=== PATIENT | female | born 2000 | race Two or more races ===

== ENCOUNTER 2024-09-01 23:30 | Emergency (ER) | payer MEDICAID, OTHER ==
[~2024-09-01] VITALS: Ht 154.9 cm; Wt 77.4 kg
[2024-09-02 00:37] LABS: Urine Bacteria None Seen /hpf (None Seen)
[2024-09-02 00:45] VITALS: BP 121/57; PULSE 78; RESP 18; TEMP 98.5; O2SAT 97
--- NOTE | 2024-09-02 00:49 | ED.PDOC ---
General HPI Comments 24-YEAR-OLD FEMALE PRESENTS TO ER WITH URINARY COMPLAINT X1 DAY. PATIENT REPORTS THAT SHE STARTED EXPERIENCING URINARY HESITANCY, URINARY URGENCY AND BURNING WITH URINATION AT 10 P.M. PRIOR TO ARRIVAL TO ER. STATES SHE ALSO NOTICED BLOOD WITH WIPING AFTER URINATION X 1 DAY. SHE REPORTS 7/10 BURNING PAIN WITH URINATION. DENIES USE OF MEDICATIONS FOR CURRENT SYMPTOMS. PATIENT PRESENTS TO ER AMBULATORY ON ARRIVAL, WITH STEADY GAIT, IN NO DISTRESS. DENIES FEVER, BODY ACHES, CHILLS, NAUSEA/VOMITING, ABDOMINAL/PELVIC PAIN, BACK/FLANK PAIN, FURTHER CHANGES IN URINATION OR ANY FURTHER SYMPTOMS/COMPLAINTS Chief Complaint: Urinary Time Seen by MD: 23:56 Primary Care Provider: UNKNOWN Reviewed notes: Nurses Notes, Medications, Allergies Allergies: Coded Allergies: NO KNOWN ALLERGIES (Unverified , 04/23/16) Home Meds Active Scripts Acetaminophen (Acetaminophen) 500 Mg Tab, 500 MG PO Q4HPRN, #30 TAB 0 Refills Prov:DARREL HILTON 09/02/24 Ciprofloxacin Hcl (Ciprofloxacin Hcl) 500 Mg Tab, 1 TAB PO BID for 7 Days, #14 TAB 0 Refills Prov:DARREL HILTON 09/02/24 Information Source: Patient Mode of Arrival: Ambulatory Past Medical History PAST MEDICAL HISTORY: Denies Surgical History: Denies all surgeries CONFERENCE SPECIALIST History: No Pertinent CONFERENCE SPECIALIST History [facility] 08-09-24 Family History Family History: Unknown Social History Smoker: Non-Smoker Alcohol: Denies ETOH Use Drugs: Denies Drug Use Lives In: Home Constitutional: denies: chills, diaphoresis, fatigue, fever, malaise, sweats, weakness, others EENTM: denies: blurred vision, double vision, ear bleeding, ear discharge, ear drainage, ear pain, ear ringing, eye pain, eye redness, hearing loss, mouth pain, mouth swelling, nasal discharge, nose bleeding, nose congestion, nose pain, photophobia, tearing, throat pain, throat swelling, voice changes, others Respiratory: denies: cough, hemoptysis, orthopnea, SOB at rest, shortness of breath, SOB with excertion, stridor, wheezing, others Cardiovascular: denies: chest pain, dizzy spells, diaphoresis, Dyspnea on exertion, edema, irregular heart beat, left arm pain, lightheadedness, palpitations, PND, syncope, others Gastrointestinal: denies: abdomen distended, abdominal pain, blood streaked bowels, constipated, diarrhea, dysphagia, difficulty swallowing, hematemesis, melena, nausea, poor appetite, poor fluid intake, rectal bleeding, rectal pain, vomiting, others Genitourinary: reports: others (As stated in HPI) Neurological: denies: dizziness, fainting, headache, left sided numbness, left sided weakness, numbness, paresthesia, pre-existing deficit, right sided numbness, right sided weakness, seizure, speech problems, tingling, tremors, weakness, others Musculoskeletal: denies: back pain, gout, joint pain, joint swelling, muscle pain, muscle stiffness, neck pain, others Integumetry: denies: bruises, change in color, change in hair/nails, dryness, laceration, lesions, lumps, rash, wounds, others Allergic/Immunocompromised: denies: Difficulty Healing, Frequent Infections, Hives, Itching, others Hematologic/Lymphatic: denies: anemia, blood clots, easy bleeding, easy bruising, swollen glands, others Endocrine: denies: excessive hunger, excessive sweating, excessive thirst, excessive urination, flushing, intolerance to cold, intolerance to heat, unexplained weight gain, unexplained weight loss, others Psychiatric: denies: anxiety, bipolar disorder, depression, hopeless, panic disorder, schizophrenia, sleepless, suicidal, others Physical Exam General Appearance: No Apparent Distress HEENT: PERRL/EOMI Neck: Full Range of Motion, Non-Tender, Normal Respiratory: Chest Non-Tender, Lungs Clear, No Accessory Muscle Use, No Respiratory Distress, Normal Breath Sounds Cardiovascular: No Murmur, No Gallop, Regular Rate/Rhythm Breast Exam: Deferred Gastrointestinal: Non Tender, No Pulsatile Mass, Soft Genitalia: Deferred Pelvic: Deferred Rectal: Deferred Extremities: Normal capillary refill, Normal range of motion Musculoskeletal : Extremity Location: Back (No TTP to bilateral flanks or CVA tenderness noted bilaterally) 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 Was a procedure done?: No Sedation Sedation?: No Differential Diagnosis Kidney stone (Female): N/A Urinary Problem (Female): Intrauterine , Urinary retention, Urolithiasis, Other (Urosepsis) X-Ray, Labs, Meds, VS Vital Signs Date Time Temp Pulse Resp B/P (MAP) Pulse Ox O2 Delivery O2 Flow Rate FiO2 09/02/24 00:45 78 18 97 Room Air 09/02/24 00:45 98.5 78 18 121/57 (78) 97 98.5 09/01/24 23:41 98.3 87 18 133/92 (106) 97 98.3 Lab Test 09/01/24 23:42 Range/Units Urine Color Light-red Yellow Urine Clarity Ex.turbid Clear Urine pH 5.5 5.0-9.0 Urine Specific [place] 1.020 1.001-1.035 Urine Protein 1+ H Negative Urine Ketones Negative Negative Urine Blood 3+ H Negative /uL Urine Nitrite Negative Negative Urine Bilirubin Negative Negative Urine Urobilinogen Normal Negative mg/dL Urine Leukocyte Esterase 3+ Negative /uL Urine RBC [id number] 0 - 4 /hpf Urine WBC Clumps Present None Seen /hpf Urine Microscopic WBC 654 H 0-5 /HPF Urine Squamous Epithelial Cells None seen <5 /hpf Urine Bacteria None seen None Seen /hpf Urine Mucus Few None Seen Urine Glucose Normal Normal mg/dL Urine Test Negative Negative Current Medications Medications (Trade) Dose Ordered Sig/Lety Route Start Time Stop Time Status Last Admin Acetaminophen (Tylenol Tablet) 650 mg ONCE ONCE PO 09/02/24 01:00 09/02/24 01:01 DC 09/02/24 01:01 Urinalysis reviewed-urine leukocyte esterase 3+, urine nitrites negative, urine blood 3+ Urine culture ordered Urine reviewed - negative Rocephin 1 g IM ordered Tylenol 650 mg po ordered Advised to drink plenty of fluids Patient had improvement in symptoms, tolerating p.o. intake well, urinating without difficulty and non-toxic appearing/in no distress prior to discharge Advised to follow up with PCP in 1-2 days Patient verbalized understanding and agreeable with current plan of care Advised to return to ER immediately if symptoms worsen Time of 1ST Reevaluation: 00:42 Reevaluation 1ST: N/A Time of 2ND Reevaluation: 01:24 Reevaluation 2ND: Improved Patient Education/Counseling: Diagnosis, Treatment, Prognosis, Need For Follow Up Family Education/Counseling: No Family Present Departure 1 Departure Time of Disposition: 01:30 Impression: Primary Impression: UTI (urinary tract infection) Qualified Codes: N30.01 - Acute cystitis with hematuria Disposition: HOME / SELF CARE / HOMELESS Condition: Stable e-Prescriptions Acetaminophen (Acetaminophen) 500 Mg Tab 500 MG PO Q4HPRN, #30 TAB 0 Refills Prov: DARREL HILTON 09/02/24 Ciprofloxacin Hcl (Ciprofloxacin Hcl) 500 Mg Tab 1 TAB PO BID for 7 Days, #14 TAB 0 Refills Prov: DARREL HILTON 09/02/24 Discharged With: Self Critical Care Note Critical Care Time?: No Stability Stability form required: No Heart Score Heart Score: Heart Score Response (Comments) Value History N/A 0 EKG N/A 0 Age N/A 0 Risk Factors N/A 0 Troponin N/A 0 Total 0 DARREL HILTON Sep 02, 2024 00:49
[2024-09-02 00:59] LABS: Urine Blood 3+ /uL (Negative); Urine Clarity Ex.Turbid (Clear); Urine Color Light-Red (Yellow); Urine Mucus FEW (None Seen); Urine Protein, UAD 1+ (Negative); Urine Squamous Epithelial Cell None Seen /hpf (<5); Urine Urobilinogen Normal (Negative); Urine WBC 654 /HPF (0-5); Urine WBC Clumps PRESENT /hpf (None Seen); Urine pH 5.5 (5.0-9.0)
[2024-09-02] MEDS: ACETAMINOPHEN 325 MG TAB PO ONE (01:01)
[2024-09-02] MEDS ORDERED: ACET500T58 PO (01:32)
[2024-09-02] MEDS ORDERED: CIPR500T4 PO (01:32)
[2024-09-02] MEDS: cefTRIAXone SOD 1,000 MG VL IM ONE (01:41)
== END 2024-09-02 01:51 | disposition home or self-care (01) ==
LOC: ER 23:30
DX: N39.0 Urinary tract infection, site not specified (principal)
CPT/HCPCS: 81001; 81025; 87086; 96372; 99283; J0696